=== PATIENT | male | born 1950 | race Caucasian/White ===

== ENCOUNTER → 2025-09-08 09:55 | Outpatient (CLI) | payer BC, SELFPAY ==
--- NOTE | 2025-09-08 10:08 | DI.RAD_ITS ---
Exam(s) XR CHEST 2V PA LATERAL EXAM: XR CHEST 2V PA LATERAL CLINICAL HISTORY: Chronic cough,R05.3 TECHNIQUE: 2D digital imaging was performed. Two views. COMPARISON: No exams were available for comparison FINDINGS: HEART: Normal size. Aorta: Not dilated. PULMONARY VASCULATURE: Normal. MEDIASTINUM: Unremarkable. LUNGS: There are low lung volumes. There are increased interstitial markings likely representing chronic interstitial fibrosis. There is no visible superimposed infiltrate or evidence of pulmonary edema. PLEURAL SPACE: No pleural effusion or pneumothorax. BONE:Unremarkable for age. SOFT TISSUES: Unremarkable. IMPRESSION: Chronic interstitial changes. No acute abnormality. DATA REPOSITORY: RADIATION DOSE DELIVERED:
== END ==
LOC: DI 09:56
PROVIDERS: PCP Family Medicine; Visit Provider Registered Nurse Maternal Newborn
DX: R05.3 Chronic cough (principal)
CPT/HCPCS: 71046